=== PATIENT | female | born 1945 | race Caucasian/White ===

== ENCOUNTER → 2017-03-14 | Outpatient (CLI) | payer MEDICARE, OTHER ==
[~2017-03-14] MED LIST: CYCL10TA2 PO; IOHEXOL 180 MG/ML 10 ML VIAL. ONE; OXYC-323 PO; methylPREDNISolone ACETATE 40 MG/ML VIAL. ONE; methylPREDNISolone ACETATE 80 MG/ML VIAL. ONE
--- NOTE | 2017-03-15 02:25 | PAIN ---
DATE OF SERVICE: 03/14/2017 CHIEF COMPLAINT: Neck and bilateral upper extremity pain, right greater than left. HISTORY OF PRESENT ILLNESS: This is a 71-year-old female who presents with history of pain in the base of the neck and shoulders as well as the right upper extremity, some in the left upper extremity as well, but much worse on the right extremity for about 1-1/2 years, gradually increasing, not a result of any specific injury or accident that she is aware of, but has been getting worse over time, stabbing, constant pain, is radiating into the upper extremities, into the arms, mostly in the anterior aspect of the biceps and some in the posterior deltoids bilaterally, upper neck, back, shoulders, causing some headaches as well as pain in the jaw on the left side and the right side. The patient reports it as aching and cold and burning sensation, worse with cold, temperatures, rain, change in positions, using her upper extremities, especially her right upper extremity with even daily activities of getting dressed or putting her arm through the sleeve of her shirt, raising her arm above to at least reach things ____ shelf is causing her pain, to be worse also with driving a car. The patient reports it wakes her from sleep about every 2-3 hours. It does not affect her bowel or bladder control, but does affect her ability to walk. The patient reports she has had physical therapy in the past, doing some exercises and stretching, but no formal physical therapy here recently. The patient did have a history of cervical fusion in the past in 2008 and did well with this until the past year and a half or so. The patient did have a CT scan of the cervical spine showing anterior fusion C3-C4, left foraminal narrowing from C4-C5 through C6-C7, with osteophytic bridging, left foraminal narrowing due to degenerative changes in the uncovertebral joint and facet joint, C5-C6 shows disk space anterior osteophytic bridging, left foraminal narrowing due to degenerative changes. Also C6-C7 shows left foraminal narrowing due to degenerative changes as well. The patient reports no loss of motor function, but significant fatigability with the right upper extremity compared to the left with even small amounts of activity. PAST MEDICAL HISTORY: Significant for borderline diabetes, hypertension, hypercholesterol, fibromyalgia, depression, shingles and headaches. PREVIOUS SURGERY: Includes breast biopsy, hysterectomy, tonsillectomy, lumbar laminectomy in 2004, cervical decompression in 2009, hernia repair and cholecystectomy in the past, also right hip surgery in 2015. CURRENT MEDICATIONS: Include oxycodone and cyclobenzaprine. ALLERGIES: The patient has no known drug allergies. FAMILY HISTORY: Significant for no major medical problems or conditions that she is aware of. SOCIAL HISTORY: The patient does not smoke, does not drink alcohol, is , lives with her spouse. No children living at home and lives in [place], [place]. REVIEW OF SYSTEMS: The patient's review of systems is positive for those items mentioned in history of present illness. All systems reviewed and otherwise negative. It is complete, full and well documented on the patient's chart. PHYSICAL EXAMINATION: VITAL SIGNS: Today, patient's blood pressure is 156/97, pulse is 92, respirations 18, temperature is 99.4 degrees Fahrenheit. Height is 5 feet 6 inches, weight is 199 pounds. GENERAL: The patient is awake, alert, oriented, appropriate, very pleasant demeanor. HEENT: Head shows normocephalic, atraumatic. Extraocular movements intact, symmetrical. Oral cavity, mucous membranes are moist and pink. Dentition is intact. NECK: Shows anterior throat supple without palpable lymphadenopathy noted. Swallow reflex is symmetrical. CHEST: Shows normal on inspection with breath sounds clear to auscultation bilaterally. HEART: Shows S1 and S2 clear. ABDOMEN: Soft, nontender, nondistended. No palpable organomegaly. No rebound or guarding demonstrated. BACK: Shows spine grossly in the midline, normal-appearing cervical lordotic curvature, thoracic kyphotic curvature, mild flattening of lumbar lordotic curvature. Well healed surgical scars noted in the lumbar distribution. Cervical paraspinous musculature shows some moderate tenderness with palpation, but is symmetrical in appearance without radiation on palpation, but symmetrical and tender in the inferior aspect of the cervical paraspinous muscles, middle cervical paraspinous muscles and the superior medial and lateral trapezius, worse on the right than the left, but without asymmetry, no trigger points or radiation. No atrophy or hypertrophy noted. The patient's neck shows good rotational motion with some tenderness with extension, but not with forward flexion. Right and left lateral rotation shows full rotation past 45 degrees closer to 90 degrees right and left without significant pain reported. EXTREMITIES: Upper extremities showed deep tendon reflexes at 1+ in the biceps and triceps tendons are equal. Motor exam is approximately 5/5 with asbestos shingle inspector strength. Biceps and triceps flexion shows about 3-4/5 with biceps flexion on the right and 4/5 on the left. Shoulder shrug is strong and intact without loss of strength on resistance with pain reported in the base of the neck on the right side. Abduction of shoulder is intact to 90 degrees as well without loss of strength on resistance, but again with pain reported into the right lateral deltoid with resistance on the right side only, no pain on the left. Peripheral pulses are 2+ radial distribution. No peripheral edema is noted. No clubbing, no cyanosis. Upper extremities are warm and dry to touch, equal in color and appearance. IMPRESSION:1. This is a 71-year-old female with about history of increasing pain in the base of the neck, bilateral shoulders and the upper extremities, right greater than left in a radicular fashion. 2. CT scan of cervical spine as noted. 3. History of hypertension. 4. Arthritis. PLAN: Options were discussed with the patient including conservative medical management, physical therapy, interventional techniques and she would like to pursue interventional techniques. We discussed a cervical epidural steroid injection using description as well as anatomical models to describe the procedure. Risks were then discussed including, but not limited to bleeding, infection, possibility of epidural hematoma and subsequent neurologic compromise, dural puncture, headaches, spinal cord and/or nerve damage, side effects of steroid medication and poor results regarding pain control. The patient understands and wishes to proceed. The patient will return to clinic in approximately 2 weeks for followup, was counseled on return appointment, activity level and side effects to be aware of. DIAGNOSES: Cervical radiculopathy, cervical degenerative disk disease and cervical post-laminectomy syndrome. PROCEDURE: Cervical epidural steroid injection in translaminar approach at the C6-C7 level using C-arm fluoroscopic guidance under sterile prep and drape using local anesthetic. Medication injected is120 mg Depo-Medrol plus 5 mL preservative-free normal saline and 2 mL Isovue for contrast. CONDITION AT DISCHARGE: Stable. The patient tolerated procedure well, had no complications. JEREL CARMEN MD DR: MARY/carina JOB#: [id number] / [id number]
== END | disposition home or self-care (01) ==
LOC: PNCL 12:43
PROVIDERS: ATTEND Anesthesiology
DX: M50.123 Cervical disc disorder at C6-C7 level with radiculopathy (principal); M96.1 Postlaminectomy syndrome, not elsewhere classified; M19.90 Unspecified osteoarthritis, unspecified site; I10 Essential (primary) hypertension; F32.9 Major depressive disorder, single episode, unspecified; E11.9 Type 2 diabetes mellitus without complications; E78.00 Pure hypercholesterolemia, unspecified; Z90.49 Acquired absence of other specified parts of digestive tract; Z90.710 Acquired absence of both cervix and uterus
CPT/HCPCS: 62321; J1030; J1040

== ENCOUNTER → 2017-04-06 | Outpatient (CLI) | payer MEDICARE ==
--- NOTE | 2017-04-07 05:05 | PAIN ---
DATE OF SERVICE: 04/06/2017 DIAGNOSES: Cervical radiculopathy with cervical degenerative disk disease and post-cervical laminectomy syndrome. HISTORY OF PRESENT ILLNESS: The patient is a 71-year-old female who returns for followup status post cervical epidural steroid injection x 1. The patient reports about 50% improvement overall, but the pain still significant in the base of the neck and shoulders as well as the right arm. The patient reports no new motor or sensory deficits, no new bowel or bladder incontinence or other complaints, still has some numbness in her feet. This has been present for some time, has been more noticeable over the last 2 weeks. As she has been trying to increase her activity and trying to walk more, reports the numbness in her feet is more noticeable, but is not limiting her ability to function and she just has numbness in the feet as she has had previously. The patient reports otherwise doing well. No new motor or sensory deficits, no new bowel or bladder incontinence or other complaints. PHYSICAL EXAMINATION: VITAL SIGNS: Today, the patient's blood pressure is 157/96, pulse 85, respirations are 18, temperature 97.7 degrees Fahrenheit, height is 5 feet 6 inches, weight is 202 pounds. GENERAL: The patient is awake, alert, oriented, appropriate, very pleasant demeanor. HEENT: Head shows normocephalic, atraumatic. Extraocular movements are intact and symmetrical. The patient wears eyeglasses. Oral cavity, mucous membranes are moist and pink. Dentition is intact. NECK: Shows anterior throat supple. CHEST: Shows normal on inspection. Breath sounds clear to auscultation bilaterally. HEART: Shows S1 and S2 clear. ABDOMEN: Soft, nontender, nondistended. No palpable organomegaly is noted. BACK: Shows spine grossly midline. Cervical paraspinous muscle shows some moderate tenderness with palpation, but is symmetrical in the inferior aspect of cervical paraspinous muscles and superior medial trapezius, more on the right than the left, but again symmetrical without evidence of atrophy, hypertrophy, no radiation of pain. EXTREMITIES: Upper extremities showed deep tendon reflexes 1+ in the biceps and triceps tendons. Motor exam is approximately 5/5 with environmental engineer scientist strength and approximately 4/5 with right biceps and triceps flexion and 5/5 on the left. Options were discussed with the patient and the patient's old chart was reviewed as her current medication regimen updated. Current review of systems updated today as well. We will proceed with a second cervical epidural steroid injection today with fluoroscopic guidance. Risks were again discussed including, but not limited to bleeding, infection, possibility of epidural hematoma, subsequent neurologic compromise, dural puncture, headaches, spinal cord and/or nerve damage, side effects of steroid medication and poor results regarding pain control. The patient understands and wishes to proceed. The patient will return to clinic in approximately 2 weeks for followup, was counseled on return appointment, activity level and side effects to be aware of. DIAGNOSIS: Cervical radiculopathy with cervical degenerative disk disease and post-cervical laminectomy syndrome. PROCEDURE: Cervical epidural steroid injection in translaminar approach at C6-C7 level using C-arm fluoroscopic guidance under sterile prep and drape using local anesthetic. Medication injected is 120 mg Depo-Medrol plus 5 mL preservative-free normal saline and 2 mL of Isovue for contrast. CONDITION AT DISCHARGE: Stable. The patient tolerated procedure well, had no complications. JEREL CARMEN MD DR: MARY/carina JOB#: [id number] / [id number]
== END | disposition home or self-care (01) ==
LOC: PNCL 12:32
PROVIDERS: ATTEND Anesthesiology
DX: M50.123 Cervical disc disorder at C6-C7 level with radiculopathy (principal); M96.1 Postlaminectomy syndrome, not elsewhere classified
CPT/HCPCS: 62321; J1030; J1040; 62323

== ENCOUNTER → 2017-04-20 | Outpatient (CLI) | payer MEDICARE ==
--- NOTE | 2017-04-21 05:39 | PAIN ---
DATE OF SERVICE: 04/20/2017 DIAGNOSES: Cervical radiculopathy with cervical degenerative disk disease and post-cervical laminectomy syndrome. HISTORY OF PRESENT ILLNESS: The patient is a 71-year-old female who returns for followup status post cervical epidural steroid injection x 2. The patient reports about 70% improvement overall in the neck and shoulders, but still with some pain returning now in the base of the neck and bilateral shoulders, somewhat worse on the right than the left. She reports it is a 10 on a scale of 10, at least it is currently a 9 on a scale of 10 and it averages 9 on a scale of 10 over the past week. Prior to this, after her last injection, which was on 04/06/2017, she did do very well for about 2 weeks. The patient reports no new motor or sensory deficits or other complaints. She states it has been awakening her from sleep over the last few days, about 3 times a night. She has to reposition and change positions, get out of bed and take pain medication to relieve this. Otherwise, doing fairly well, no new motor or sensory deficits, no new complaints. The patient described it as constant and severe and becoming more unbearable in the neck itself. PHYSICAL EXAMINATION: VITAL SIGNS: The patient's blood pressure is 169/75, respirations 18, pulse is 69, temperature is 98.5 degrees Fahrenheit. Weight is 206 pounds and height is 5 feet 6 inches. GENERAL: The patient is awake, alert, oriented, appropriate, very pleasant demeanor. HEENT: Shows normocephalic and atraumatic. Extraocular movements are intact and symmetrical. Oral cavity shows mucous membranes are moist and pink. Dentition is intact. NECK: Shows anterior throat supple without palpable lymphadenopathy noted. Swallow reflex is symmetrical. CHEST: Shows normal on inspection with breath sounds clear to auscultation bilaterally. HEART: Shows S1 and S2 clear. ABDOMEN: Soft, nontender, nondistended. BACK: Neck shows posterior cervical musculature is moderately tender in the inferior aspect of the cervical paraspinous muscles but without radiation. No atrophy or hypertrophy. It appears roughly symmetrical on inspection. The patient has good rotational motion both laterally as well as extension and flexion without significant pain reported. Minor pain with extension only but not with forward flexion, right or left lateral rotation and without radiation to the upper extremities. EXTREMITIES: Upper extremities show deep tendon reflexes at 1+ in the biceps and triceps tendons. Motor exam is 5/5 with beauty counselor strength and 4/5 with the right biceps flexion and triceps, but 5/5 on the left. Peripheral pulses are 2+ in radial distribution and are equal. PLAN: Options were discussed with the patient. The patient's old chart was reviewed as her current medication regimen and updated. Current review of systems is updated today as well, and we will proceed with a third in the series of cervical epidural steroid injection today with fluoroscopic guidance. Risks were again discussed including but not limited to bleeding, infection, possibility of epidural hematoma, subsequent neurologic compromise, dural puncture, headaches, spinal cord and/or nerve damage, side effects of steroid medication and poor results regarding pain control. The patient understands and wishes to proceed. The patient will return to the clinic in approximately 2 weeks for followup. She was counseled as to return appointment, activity level and side effects to be aware of. DIAGNOSES: Cervical radiculopathy with cervical degenerative disk disease and post-cervical laminectomy syndrome. PROCEDURE: Cervical epidural steroid injection in translaminar approach at the C6-C7 level using C-arm fluoroscopic guidance under sterile prep and drape using local anesthetic. MEDICATIONS INJECTED: Depo-Medrol 120 mg plus 5 mL of preservative-free normal saline and 2 mL of Isovue for contrast. CONDITION AT DISCHARGE: Stable. The patient tolerated the procedure well, had no complications. JEREL CARMEN MD DR: MARY/carina JOB#: [id number] / [id number]
== END | disposition home or self-care (01) ==
LOC: PNCL 12:48
PROVIDERS: ATTEND Anesthesiology
DX: M50.123 Cervical disc disorder at C6-C7 level with radiculopathy (principal)
CPT/HCPCS: 62321; J1030; J1040

== ENCOUNTER → 2021-10-21 | Outpatient (CLI) | payer MEDICARE ==
[~2021-10-21] MED LIST changes: +ASPI-886 PO; +CYCL10TA19 PO; -CYCL10TA2 PO; +IBUP400T99 PO; -OXYC-323 PO; +OXYC1TAB15 PO
--- NOTE | 2021-10-21 14:58 | PDOC1 ---
INITIAL PAIN CONSULT DATE OF SERVICE: DOS: DATE: 10/21/21 TIME: 14:49 CHIEF COMPLAINT: Chief Complaint: Low back and left lower extremity pain HISTORY OF PRESENT ILLNESS: 76-year-old female presents with history of pain low back left lower extremity post a fall in 1976 but over the past 2 months has become much worse patient has had back surgery in the past x3 also bilateral hip replacements and a cervical fusion patient reports that the pain began in July of this year without any specific injury or accident recently Ms. beginning much worse with pain rating across the low back into the left lower extremity posterior gluteus posterior thigh posterior calf and foot with numbness and tingling in both feet but more on the left patient reports is worse with walking and standing changing positions she is using a wheelchair or walker whenever she can she is in wheelchair today. Patient reports is constant sharp stabbing throbbing shooting the legs tingling and numb in the feet radiating the legs cramping and aching in the back burning in the back as well patient did have MRI scan which is dated January 01, 2020 showing L3-4 broad-based posterior protrusion with bilateral neuroforaminal stenosis more so on the right than the left L4-5 shows broad- based posterior protrusion with bilateral neuroforaminal stenosis with compromise of both nerve roots more so on the left than the right L5-S1 shows broad-based posterior protrusion and a small focal central herniation with moderate canal stenosis and bilateral neuroforaminal stenosis. Patient rates her disability rating 0-10 10 being the as a 10 in all categories family home responsibilities recreation social activity sexual behavior occupation life support activities and self-care activities. Patient reports no loss of motor function with significant fatigability left lower extremity with standing walking and it does disturb her sleep at least every 2-3 hours at night patient reports does not affect her bowel or bladder control does affect her ability to walk and she again is using a walker and has a wheelchair with her which was available today for her visit. Patient reports she has had physical therapy in the past she been doing some stretching strengthening on her own and had no formal treatment of the therapy recently. PAST MEDICAL HISTORY: PMH: Arthritis, cataracts PREVIOUS SURGERIES: Past Surgical Hx: Lumbar laminectomy x3, cervical laminectomy and fusion, right hip replacement, left hip replacement, partial hysterectomy, total hysterectomy, cataract extractions, cholecystectomy, hernia repair, breast biopsy CURRENT MEDICATIONS: Current Meds: Active Scripts Medications Dose Route/Sig Max Daily Dose Days Date Category Dose Instructions Ibu (Ibuprofen) 400 Mg Tablet 1 Tab PO Q4HRS 5 10/21/21 Reported NEEDED FOR PAIN Aspirin Ec (Aspirin) 81 Mg Tablet.dr 4 Tab PO Q4HRS 10/21/21 Reported ALLERGIES; Allergies: Coded Allergies: No Known Drug Allergies (Unverified , 03/14/17) FAMILY HISTORY: Family Hx: No major medical problems or conditions that she is aware of. SOCIAL HISTORY: Social Hx: Patient is under alcohol does not smoke does not use any illegal illicit recreational drugs is lives with her spouse is retired and lives locally in [facility] REVIEW OF SYSTEMS: ROS: Positive for those items mentioned in history of present illness, all systems are reviewed, otherwise negative ,and are complete full and well-documented on patient's chart. PHYSICAL EXAM: VS: Blood pressure is 157/84 pulse 91 respirations 18 temperature 97.9 F height is 5 feet 6 inches weight is 175 pounds PE: PHYSICAL EXAMINATION: GENERAL: The patient is awake, alert, oriented, appropriate, very pleasant in demeanor, patient accompanied by her . HEENT: Shows normocephalic, atraumatic. Extraocular movements are intact and symmetrical. Oral cavity: Mucous membranes moist and pink. NECK: Shows anterior throat supple without palpable lymphadenopathy noted. Swallow reflex symmetrical. CHEST: Shows normal on inspection. Breath sounds are clear bilaterally, distant but no rales rhonchi wheezes auscultated. HEART: Shows S1, S2 clear. No murmurs auscultated. ABDOMEN: Soft, nontender, nondistended. No palpable organomegaly is noted. BACK: Shows spine grossly in the midline. Normal-appearing cervical lordotic curvature. There is increased thoracic kyphosis, flattening of the lumbar lordotic curvature with well-healed midline surgical scar noted. Lumbar paraspinous muscles show symmetrical on inspection, on palpation shows some moderate tenderness diffusely throughout the upper, middle and lower distribution of the paraspinous muscles bilaterally and also into the lower thoracic paraspinous musculature, firm and tender, but without specific trigger points, without radiation of pain. The patient has limited rotation of the lumbar spine especially with extension secondary to previous surgery. No tenderness over the spinous processes, sacrum or sacroiliac regions. EXTREMITIES: Lower extremities show deep tendon reflexes 1+ in the patellar and tendo calcaneus tendons. Motor exam is 5 on a scale of 5 with right dorsiflexion, extension, quadriceps and hamstring flexion and 4/5 on the left. Peripheral pulses are 1+ posterior tibial. 2+ peripheral edema is noted bilaterally. Lower extremities are warm and dry to touch, equal in color and appearance. Straight leg raise noted to be positive on the left at approximately 35 degrees, right side is negative. Gaenslen's and Blaise's maneuvers are negative bilaterally. The patient is able to stand but has diff iculty getting up from a seated position and requires assistance, walks with a very shuffling very cautious gait and is using a wheelchair today but has a walker with her as well. SKIN: Shows warm and dry, good turgor. No edema. No sores, rashes or bruising throughout. IMPRESSION: Impression: 76-year-old female with long history of low back and left lower extremity pain worse over the past 2months and radicular fashion. MRI scan lumbar spine as noted Arthritis Hearing loss Plan: Options were discussed with the patient including serve medical management physical therapies interventional techniques. Patient elects interventional techniques we discussed a lumbar epidural steroid injection using descriptions as well as anatomical models to describe the procedure. Risks were discussed including but not limited to: Bleeding, infection, possibility of epidural hematoma and subsequent neurological compromise, dural puncture, headaches, spinal cord and/or nerve damage, side effects of steroid medication, and poor results regarding pain control. Patient understands and wished to proceed. Patient will return to the clinic in approximately 4 weeks for follow-up, was counseled as to return appointment, activity level, and side effect to be aware of. Procedure is lumbar epidural steroid injection under local anesthetic using sterile prep and drape at the L5-S1 level using C-arm fluoroscopic guidance in both AP and lateral views medications injected is 120 mg Depo-Medrol +10mL preservative-free normal saline and 2 mL contrast- condition at discharge is stable patient tolerated procedure well had no complications. JEREL CARMEN MD Oct 21, 2021 14:58
--- NOTE | 2021-10-21 14:59 | PDOC4 ---
Procedure Note: ICD 10 Code: ICD 10 Code: M54.17 M51.87 M 40.07 M 96.1 Procedure Note: Patient was consented for lumbar epidural steroid injection with fluoroscopic guidance. Risks were discussed including but not limited to: Bleeding, infection, possibility of epidural hematoma and subsequent neurological compromise, dural puncture, headaches, spinal cord and/or nerve damage, side effects of steroid medication, and poor results regarding pain control. Patient understands and wished to proceed. Procedure is lumbar epidural steroid injection under local anesthetic using sterile prep and drape at the L5-S1 level using C-arm fluoroscopic guidance in both AP and lateral views medications injected is 120 mg Depo-Medrol +10mL preservative-free normal saline and 2 mL contrast- condition at discharge is stable patient tolerated procedure well had no complications. JEREL CARMEN MD Oct 21, 2021 14:59
== END | disposition home or self-care (01) ==
LOC: PNCL 13:12
PROVIDERS: ATTEND Anesthesiology
DX: M51.17 Intervertebral disc disorders with radiculopathy, lumbosacral region (principal); M48.07 Spinal stenosis, lumbosacral region; M96.1 Postlaminectomy syndrome, not elsewhere classified; M79.605 Pain in left leg; M19.90 Unspecified osteoarthritis, unspecified site; Z79.82 Long term (current) use of aspirin; Z79.899 Other long term (current) drug therapy; Z90.710 Acquired absence of both cervix and uterus; Z98.890 Other specified postprocedural states; Z90.49 Acquired absence of other specified parts of digestive tract
CPT/HCPCS: 62323; 99214; J1030; J1040; Q9965; G0463

== ENCOUNTER → 2021-11-22 | Outpatient (CLI) | payer MEDICARE ==
[~2021-11-22] MED LIST changes: +PREG150C PO; -methylPREDNISolone ACETATE 40 MG/ML VIAL. ONE
--- NOTE | 2021-11-22 14:22 | PDOC ---
Progress Note - Pain Clinic Date of Service: DOS: DATE: 11/22/21 TIME: 14:17 Diagnosis: Dx: Lumbar radiculopathy with lumbar degenerative disc disease lumbar spinal stenosis and lumbar postlaminectomy syndrome History or Present Illness: HPI: 76-year-old female returns for follow-up status post lumbar epidural steroid injection times 29 September 2030. Patient did very well with about 50% improveme nt initially now about 30% improvement overall with pain in the low back and radiating to the left lower extremity patient reports pain is a 10 on scale 10 is worst 10 on average and a 6 at its least patient reports its in the low back left leg rating the posterior gluteus posterior thigh posterior calf lateral thigh and calf as well as into the sole of the foot and some on the right foot as well. Patient reports that sharp and shooting stabbing can be constant severe with weightbearing walking standing patient is to be using a walker and also is using a wheelchair on her presentation today. Patient reports no bowel or bladder incontinence but significant fatigability of the left leg compared to the right and the right leg she notices bowing inward when she is walking and weightbearing and does demonstrate that with her exam today. Patient reports it wakes her from sleep 2-3 times a night, most nights. Patient reports initially she is doing better with distance walking doing household activity still using her walker however. We discussed patient's neuropathic quality pain in the bilateral feet as well as lower extremities and will prescribe Lyrica 150 mg 1 tablet p.o. twice daily. Patient given instructions as well as side effects beware of with the new medication. Physical Exam: VS: Blood pressure is 187/100 pulse 93 respirations 18 temperature is 97.5 F height is 5 feet 6 inches weight is 175 pounds. PE: PHYSICAL EXAMINATION: GENERAL: The patient is awake, alert, oriented, appropriate, very pleasant in demeanor, patient accompanied by her . HEENT: Shows normocephalic, atraumatic. Extraocular movements are intact and symmetrical. Oral cavity: Mucous membranes moist and pink. NECK: Shows anterior throat supple without palpable lymphadenopathy noted. Swallow reflex symmetrical. CHEST: Shows normal on inspection. Breath sounds are clear bilaterally, distant but no rales or rhonchi auscultated. HEART: Shows S1, S2 clear. No murmurs auscultated. ABDOMEN: Soft, nontender, nondistended. No palpable organomegaly is noted. No rebound or guarding demonstrated. BACK: Shows spine grossly in the midline. Normal-appearing cervical lordotic curvature. There is moderately increased thoracic kyphosis, some flattening of the lumbar lordotic curvature with well-healed surgical scarring in the midline. Lumbar paraspinous muscles show symmetrical on inspection, on palpation shows some moderate tenderness diffusely throughout the upper, middle and lower distribution of the paraspinous muscles without specific trigger points, without radiation of pain. The patient has good rotational motion of the lumbar spine, both laterally as well as extension and flexion without significant difficulty. No tenderness over the spinous processes, sacrum or sacroiliac regions. EXTREMITIES: Lower extremities show deep tendon reflexes 1 in the patellar and tendo calcaneus tendons. Motor exam is 5 on a scale of 5 with right dorsiflexion, extension, quadriceps and hamstring flexion and 4/5 on the left. Peripheral pulses are 1+ posterior tibial. No peripheral edema is noted bilaterally. Lower extremities are warm and dry to touch, equal in color and appearance. SKIN: Shows warm and dry, good turgor. No edema. No sores, rashes or bruising throughout. Procedure: Procedure: Options were discussed with the patient. Patient's old chart was reviewed as was her current medication regimen updated current review of systems updated today as well. We will proceed with a lumbar epidural steroid injection today with fluoroscopic guidance. Risks were discussed including but not limited to: Bleeding, infection, possibility of epidural hematoma and subsequent neurological compromise, dural puncture, headaches, spinal cord and/or nerve damage, side effects of steroid medication, and poor results regarding pain control. Patient understands and wished to proceed. Patient will return to clinic in approximately 4 weeks for follow-up, was counseled as to return appointment, activity level, and side effect to be aware of. Again, will prescribe Lyrica 150 mg twice daily for patient's neuropathic pain in the bilateral feet. Patient given instructions as well as side effects beware with the medication. Medication Injected: Med Injected: Procedure is lumbar epidural steroid injection under local anesthetic using sterile prep and drape at the L5-S1 level using C-arm fluoroscopic guidance in both AP and lateral views medications injected is 120 mg Depo-Medrol +10mL preservative-free normal saline and 2 mL contrast- condition at discharge is stable patient tolerated procedure well had no complications. Condition at Discharge: Condition at Discharge: Condition at discharge stable, patient tolerated the procedure well and had no complications. JEREL CARMEN MD Nov 22, 2021 14:22
--- NOTE | 2021-11-22 14:23 | PDOC4 ---
Procedure Note: ICD 10 Code: ICD 10 Code: M54.17 M51.7 M4 8.07 M 96.1 Procedure Note: Patient was consented for lumbar epidural steroid injection with fluoroscopic guidance. Risks were discussed including but not limited to: Bleeding, infection, possibility of epidural hematoma and subsequent neurological compromise, dural puncture, headaches, spinal cord and/or nerve damage, side effects of steroid medication, and poor results regarding pain control. Patient understands and wished to proceed. Procedure is lumbar epidural steroid injection under local anesthetic using sterile prep and drape at the L5-S1 level using C-arm fluoroscopic guidance in both AP and lateral views medications injected is 120 mg Depo-Medrol +10mL preservative-free normal saline and 2 mL contrast- condition at discharge is stable patient tolerated procedure well had no complications. JEREL CARMEN MD Nov 22, 2021 14:22
== END | disposition home or self-care (01) ==
LOC: PNCL 13:21
PROVIDERS: ATTEND Anesthesiology
DX: M51.16 Intervertebral disc disorders with radiculopathy, lumbar region (principal); M48.061 Spinal stenosis, lumbar region without neurogenic claudication; M96.1 Postlaminectomy syndrome, not elsewhere classified; Z79.82 Long term (current) use of aspirin; Z79.899 Other long term (current) drug therapy
CPT/HCPCS: 62323; J1040; Q9965

== ENCOUNTER → 2021-12-23 | Outpatient (CLI) | payer MEDICARE ==
[~2021-12-23] MED LIST changes: +DEXAMETHASONE PRES.FREE 10 MG/ML VIAL. ONE; -methylPREDNISolone ACETATE 80 MG/ML VIAL. ONE
--- NOTE | 2021-12-23 14:24 | PDOC ---
Progress Note - Pain Clinic Date of Service: DOS: DATE: 12/23/21 TIME: 14:17 Diagnosis: Dx: Lumbar radiculopathy with lumbar degenerative disc disease lumbar spinal stenosis and lumbar postlaminectomy syndrome History or Present Illness: HPI: 76-year-old female returns for follow-up status post lumbar epidural steroid injection patient reports about 40% improvement overall of pain still in the low back and into the left lower extremity lower extremity doing much better though she still some numbness in the bottom of both of her feet the pain complaint is the pain in the low back itself and into the left hip and lateral thigh patient reports is also in the posterior thigh but more so in the lateral thigh and in the low back itself. Patient reports is tight and aching can be constant with walking standing worse with changing positions after the injection she was doing much better with distance walking doing household activities stopped using her walker for a short period of time but now presents in a wheelchair, more comfortable to walk and especially weightbearing on the left lower extremity. Patient reports her pain is a 10 on scale 10 is worst over the last week, 10 on average, and a 4 at its least and is a 10 today. We did review patient's MRI scan with her and her today showing some significant broad-based protrusion posteriorly at the L5-S1 with a small focal central herniation and moderate canal stenosis. Patient reports becoming more difficult to bear weight on the left leg over the past week or so as well as changing positions and is waking her from sleep about every 3 hours or so. Patient reports no bowel or bladder incontinence. Physical Exam: VS: Blood pressure is 149/100 pulse 98 respirations 18 temperature 90.2 F height 5 feet 6 inches weight is 172 pounds. PE: PHYSICAL EXAMINATION: GENERAL: The patient is awake, alert, oriented, appropriate, very pleasant in demeanor, patient accompanied by her . HEENT: Shows normocephalic, atraumatic. Extraocular movements are intact and symmetrical. Oral cavity: Mucous membranes moist and pink. NECK: Shows anterior throat supple without palpable lymphadenopathy noted. Swallow reflex symmetrical. CHEST: Shows normal on inspection. Breath sounds are clear bilaterally, no rales rhonchi or wheezes auscultated. HEART: Shows S1, S2 clear. No murmurs auscultated. ABDOMEN: Soft, nontender, nondistended. No palpable organomegaly is noted. BACK: Shows spine grossly in the midline. Normal-appearing cervical lordotic curvature. There is moderately increased thoracic kyphosis, some flattening of the lumbar lordotic curvature with well-healed surgical scarring noted. Lumbar paraspinous muscles show symmetrical on inspection, on palpation shows some moderate tenderness diffusely throughout the upper, middle and lower distribution of the paraspinous muscles without specific trigger points, without radiation of pain. The patient has good rotational motion of the lumbar spine, both laterally as well as extension and flexion without significant difficulty. No tenderness over the spinous processes, sacrum or sacroiliac regions. EXTREMITIES: Lower extremities show deep tendon reflexes 1+ in the patellar and tendo calcaneus tendons. Motor exam is 5 on a scale of 5 with right dorsiflexion, extension, quadriceps and hamstring flexion and 4/5 on the left. Peripheral pulses are 1 posterior tibial. No peripheral edema is noted bilaterally. Lower extremities are warm and dry to touch, equal in color and appearance. SKIN: Shows warm and dry, good turgor. No edema. No sores, rashes or bruising throughout. Procedure: Procedure: Options discussed with the patient. Patient's old chart was reviewed as her current medication regimen updated, and current review of systems updated today as well. We will proceed with a lumbar epidural steroid injection today with fluoroscopic guidance. Risks were discussed including but not limited to: Bleeding, infection, possibility of epidural hematoma and subsequent neurological compromise, dural puncture, headaches, spinal cord and/or nerve damage, side effects of steroid medication, and poor results regarding pain control. Patient understands and wished to proceed. Patient will return to the clinic in approximately 2 weeks for follow-up, was counseled as to return appointment, activity level, and side effect to be aware of. Medication Injected: Med Injected: Procedure is lumbar epidural steroid injection under local anesthetic using sterile prep and drape at the L5-S1 level using C-arm fluoroscopic guidance in both AP and lateral views medications injected is 20 mg dexamethasone +10mL preservative-free normal saline and 2 mL contrast- condition at discharge is stable patient tolerated procedure well had no complications. Condition at Discharge: Condition at Discharge: Condition at discharge stable, patient tolerated procedure well and had no complications. JEREL CARMEN MD Dec 23, 2021 14:24
--- NOTE | 2021-12-23 14:25 | PDOC4 ---
Procedure Note: ICD 10 Code: ICD 10 Code: M54.17 M51.87 M 48.07 M 96.1 Procedure Note: Patient was consented for lumbar epidural steroid injection with fluoroscopic guidance. Risks were discussed including but not limited to: Bleeding, infection, possibility of epidural hematoma and subsequent neurological compromise, dural puncture, headaches, spinal cord and/or nerve damage, side effects of steroid medication, and poor results regarding pain control. Patient understands and wished to proceed. Procedure is lumbar epidural steroid injection under local anesthetic using sterile prep and drape at the L5-S1 level using C-arm fluoroscopic guidance in both AP and lateral views medications injected is 20 mg dexamethasone +10mL preservative-free normal saline and 2 mL contrast- condition at discharge is stable patient tolerated procedure well had no complications. JEREL CARMEN MD Dec 23, 2021 14:25
== END | disposition home or self-care (01) ==
LOC: PNCL 13:01
PROVIDERS: ATTEND Anesthesiology
DX: M51.16 Intervertebral disc disorders with radiculopathy, lumbar region (principal); M48.061 Spinal stenosis, lumbar region without neurogenic claudication; M96.1 Postlaminectomy syndrome, not elsewhere classified; Z79.82 Long term (current) use of aspirin; Z79.899 Other long term (current) drug therapy; Z98.890 Other specified postprocedural states
CPT/HCPCS: 62323; J1100; Q9965

== ENCOUNTER → 2022-01-19 | Outpatient (CLI) | payer MEDICARE ==
[~2022-01-19] MED LIST changes: +BUPIVACAINE MPF 0.25% 10 ML VIAL. ONE
--- NOTE | 2022-01-19 14:23 | PDOC4 ---
Procedure Note: ICD 10 Code: ICD 10 Code: M4 6.1 Procedure Note: Patient was consented for bilateral sacroiliac joint injections with fluoroscopic guidance. Risks are discussed including but not limited to bleeding infection possibility of intravascular injection sequelae spread of local anesthetic and numbness side effects of steroid medication exposure fluoroscopy and poor results regarding pain control. Patient understands and wished to proceed. Under sterile prep and drape using C-arm fluoroscopic guidance, bilateral sacroiliac joints injected using 2 cc each of 0.25% bupivacaine + 10 mg dexamethasone each, and total of 2 cc contrast. Condition at discharge is stable, patient tolerated procedure well and had no complications. JEREL CARMEN MD Jan 19, 2022 14:23
--- NOTE | 2022-01-19 14:23 | PDOC ---
Progress Note - Pain Clinic Date of Service: DOS: DATE: 01/19/22 TIME: 14:17 Diagnosis: Dx: Bilateral sacroiliitis Lumbar radiculopathy with lumbar degenerative disc disease lumbar spinal stenosis and lumbar postlaminectomy syndrome History or Present Illness: HPI: 76-year-old female returns for follow-up last seen December 23, 2021 patient had lumbar epidural steroid injection with very good results approximately 80% initially then down to about 30% overall main complaint of pain in the bilateral feet which is still tingling and shooting patient reports that otherwise the back is doing much better but she has new pain bilaterally in the hips poste riorly, the patient reports this is not the result of any specific injury or accident that she has had recently is most noticeable with sitting for prolonged periods getting up from seated position to standing and standing and walking worse on the left side than the right but present bilaterally without radiation to the lower extremities patient reports on scale 10 is average 10 is worst and is a 6 at its least and is an 8 today. Patient reports no bowel or bladder incontinence no loss of motor function still using a walker to ambulate which she has with her today. Physical Exam: VS: Blood pressure is 191/117 pulse 116 respirations 18 temperature 98.1 F height 5 feet 6 inches weight is 182 pounds. PE: PHYSICAL EXAMINATION: GENERAL: The patient is awake, alert, oriented, appropriate, very pleasant in demeanor HEENT: Shows normocephalic, atraumatic. Extraocular movements are intact and symmetrical. NECK: Shows anterior throat supple without palpable lymphadenopathy noted. Swallow reflex symmetrical. CHEST: Shows normal on inspection. Breath sounds are clear bilaterally, no ra les rhonchi or wheezes auscultated. HEART: Shows S1, S2 clear. No murmurs auscultated. ABDOMEN: Soft, nontender, nondistended. No palpable organomegaly is noted. BACK: Shows spine grossly in the midline. Normal-appearing cervical lordotic curvature. There is mildly increased thoracic kyphosis, some flattening of the lumbar lordotic curvature with well-healed midline surgical scar again noted. Lumbar paraspinous muscles show symmetrical on inspection, on palpation shows some moderate tenderness diffusely throughout the upper, middle and lower distribution of the paraspinous muscles without specific trigger points, without radiation of pain. The patient has good rotational motion of the lumbar spine, both laterally as well as extension and flexion without significant difficulty. Patient's posterior superior iliac spine shows significant tenderness with palpation worse on the left and right but present bilaterally with very tender area just inferior to this posterior superior iliac spine over the sacroiliac 1+ region again worse on the left than the right but without radiation. Patient shows positive compression test with both sides right and left with compression of the hip when laying in a lateral position worse on the left than the right but present bilaterally. EXTREMITIES: Lower extremities show deep tendon reflexes 1+ in the patellar and tendo calcaneus tendons. Motor exam is 5 on a scale of 5 with right dorsiflexion, extension, quadriceps and hamstring flexion and 4/5 on the left. Peripheral pulses are 1+ posterior tibial. No peripheral edema is noted bilaterally. Lower extremities are warm and dry. Patient has positive Gaenslen's maneuver bilaterally as well again more tender on the right than the left with posterior displacement of the lower extremity and external rotation. SKIN: Shows warm and dry, good turgor. No edema. No sores, rashes or bruising throughout. Procedure: Procedure: Options were discussed with the patient. Patient's old chart was reviewed as her current medication regimen updated current review of systems updated today as well. We will proceed with bilateral sacroiliac joint injections today with fluoroscopic guidance. Risk discussed including but not limited to bleeding infection possibility of intravascular injection sequelae spread of local anesthetic numbness side effects steroid medications post arthroscopy portals regarding pain control. Patient understands wished to proceed. Patient return to clinic in approximately 3 weeks for follow-up, was counseled as to return appointment, activity level, and side effect to be aware of. Medication Injected: Med Injected: Under sterile prep and drape using C-arm fluoroscopic guidance, bilateral sacroiliac joints injected using 2 cc each of 0.25% bupivacaine + 10 mg dexamethasone each, and total of 2 cc contrast. Condition at discharge is stable, patient tolerated procedure well and had no complications. Condition at Discharge: Condition at Discharge: Condition at discharge stable, paced tolerated the procedure well and had no complications. EJREL CARMEN MD Jan 19, 2022 14:23
== END | disposition home or self-care (01) ==
LOC: PNCL 13:22
PROVIDERS: ATTEND Anesthesiology
DX: M46.1 Sacroiliitis, not elsewhere classified (principal); M51.16 Intervertebral disc disorders with radiculopathy, lumbar region; M48.061 Spinal stenosis, lumbar region without neurogenic claudication; M96.1 Postlaminectomy syndrome, not elsewhere classified; Z79.82 Long term (current) use of aspirin; Z79.899 Other long term (current) drug therapy
CPT/HCPCS: G0260; J1100; J3490; Q9965; 27096

== ENCOUNTER → 2022-03-21 | Outpatient (CLI) | payer MEDICARE ==
[~2022-03-21] MED LIST changes: -BUPIVACAINE MPF 0.25% 10 ML VIAL. ONE; -DEXAMETHASONE PRES.FREE 10 MG/ML VIAL. ONE; -IOHEXOL 180 MG/ML 10 ML VIAL. ONE
--- NOTE | 2022-03-21 15:29 | NUR ---
Patient called requesting a medication refill, Verified name, , Pharmacy, Medications, patient state her pain level is a 10/10. Denies any new medical problems, next appointment, . Patient verified next appointment. call transferred to Dr Head.
--- NOTE | 2022-03-21 15:40 | PDOC ---
Progress Note - Pain Clinic Date of Service: DOS: DATE: 03/21/22 TIME: 15:38 Diagnosis: Dx: Lumbar radiculopathy with lumbar degenerative disease lumbar spinal stenosis lumbar postlaminectomy syndrome History or Present Illness: HPI: Telemedicine visit today with patient's identity verified with full name as well as full date of , total time spent 12 minutes, telephone voice only 76-year-old female via telemedicine visit today requesting refill of Lyrica patient has been doing very well with this and reports significant decrease about 60% in her low back and bilateral lower extremity pain especially in the feet with the Lyrica patient reports is much more manageable much more comfortable she is able to increase her activities greater ease and comfort no side effects with the medication. Patient reports still having some significant pain with a burning in the feet with extended standing or walking but much better than previously. Patient reports no side effects with the medication as well. We discussed options and will refill patient's Lyrica 150 mg twice daily for 90-day supply. Patient is given instructions well side effects to be aware of with the medication. Patient will follow up in approximately 90 days, or sooner as necessary. JEREL CARMEN MD March 21, 2022 15:40
== END | disposition home or self-care (01) ==
LOC: PNCL 15:25
PROVIDERS: ATTEND Anesthesiology
DX: M51.16 Intervertebral disc disorders with radiculopathy, lumbar region (principal); M48.061 Spinal stenosis, lumbar region without neurogenic claudication; M96.1 Postlaminectomy syndrome, not elsewhere classified; Z79.82 Long term (current) use of aspirin; Z79.899 Other long term (current) drug therapy
CPT/HCPCS: 99212; G0463